=== PATIENT | male | born 1985 | race Caucasian/White ===

== ENCOUNTER 2019-08-30 18:27 | Emergency (ER) | payer MEDICAID, OTHER ==
[2019-08-30 18:32] VITALS: BP 141/92; PULSE 104; RESP 20; TEMP 98.4
[2019-08-30] MEDS ORDERED: DIPH,PERTUS(ACELL)TETVAC-LF 0.5 ML VIAL IM ONE (18:34)
[2019-08-30] MEDS ORDERED: LIDOCAINE 1% INJ 10MG/ML (20 ML MDV) SQ ONE (18:41)
[2019-08-30] MEDS ORDERED: MORPHINE SULFATE 4 MG/ML SYRINGE IM STA (18:49)
[2019-08-30] MEDS ORDERED: ceFAZolin 1,000 MG VIAL (IM USE) IM STA (19:02)
--- NOTE | 2019-08-30 19:06 | ED ---
Wound/Laceration HPI - General Chief Complaint: Wound/Laceration Stated Complaint: finger lac Time Seen by Provider: 08/30/19 18:33 Source: patient Mode of arrival: ambulatory Limitations: no limitations - History of Present Illness Initial Comments: 34-year-old male presenting today for cc of left ring finger laceration/injury x 30 minutes prior to arrival. Patient states he was in the rain using a log splitter when he accidentally caught the tip of his finger in the machine, he states it crushed it. He was wearing a glove. He noted a laceration and came to the ER for repair/further evaluation. Patient states it is painful but he is able to range the digits, denies loss of sensation. Patient denies injury to any other digit,part of the hand. 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 Patient on arrival appears uncomfortable but nontoxic. Tetanus not UTD. - Related Data Previous Rx's Medication Instructions Recorded Cephalexin [Keflex] 500 mg PO Q6HR 7 Days #28 cap 08/30/19 HYDROcodone/APAP 5-325MG [[place] 1 tab PO Q4HR PRN 3 Days #18 tab 08/30/19 5-325] Allergies Allergy/AdvReac Type Severity Reaction Status Date / Time No Known Allergies Allergy Verified 08/30/19 18:32 Review of Systems ROS Statement: Those systems with pertinent positive or pertinent negative responses have been documented in the HPI. ROS Other: All systems not noted in ROS Statement are negative. Past Medical History Past Medical History: No Reported History History of Any Multi-Drug Resistant Organisms: None Reported Past Surgical History: No Surgical Hx Reported Past Psychological History: No Psychological Hx Reported Smoking Status: Current every day smoker Past Alcohol Use History: Occasional Past Drug Use History: None Reported General Exam - General Exam Comments Initial Comments: General: The patient is awake and alert, in no distress, and does not appear acutely ill. Eye: Pupils are equal, round and reactive to light, extra-ocular movements are intact. No nystagmus. There is normal conjunctiva bilaterally. No signs of icterus. Musculoskeletal: Normal ROM at the MCP, DIP and PIP joints of affected digit, painful. Strength appears intact, but refuses to full strength test secondary to pain (once anesthetized appeared to be intact). Sensation intact proximal and distal to the injury site. Radial pulses equal bilaterally 2+. The proximal portion of nail plate avulse, the distal is adhered, roughly 40-50% subungual hematoma. Neurological: A&O x 3. CN II-XII intact, There are no obvious motor or sensory deficits. Coordination appears grossly intact. Speech is normal. Skin: Skin is warm and dry and no rashes, VERY irregular laceration 1.5cm consistent with crush injury of the lateral aspect of the finger pad of distal left ring finger, no bone or tendon exposure--no foreign body identified on exploration. Psychiatric: Cooperative, appropriate mood & affect, normal judgment. Limitations: no limitations Course Vital Signs 08/30/19 18:30 Temperature 98.4 F Pulse Rate 104 H Respiratory 20 Rate Blood Pressure 141/92 O2 Sat by Pulse 99 Oximetry Medical Decision Making - Medical Decision Making 34-year-old male presenting today for chief complaint of crush injury to the left index finger. There is no obvious exposure of a suspected open fracture. Xr revealed a distal tuft fracture of 4th digit, comminuted/diastatic slightly. Patient given 1 G IM. Area Was irrigated, explored, no bone or tendon exposure. Nail proximally avulsed. attempted to tact down the nail bed to protect remaining nail bed. No obvious or appreciated nail bed laceration. Patient laceration was VERY irregular, many mall viable piece of skin, too small for proper approximation but lay flat within the wound. Approximately edges as well as possible. Discussed risk of infection with patient was well as his who is a nurse bedside. She states she is familar with the hand surgeons in town such as [facility] and wants to personally seek patients follow-up I recommended f/u urgently Monday after the holiday with daily monitoring/bandage change for signs of infection. Patient placed on keflex orally q6h. Patient finger bandaged and splinted. There was no obvious tendon injury but did discuss how one may develop if there was a partial injury that progresses to full thus re-iterating the importance of timely f/u . Patient is agreeable to care plan and discharge. Patient dishcarged appearing well. Disposition Clinical Impression: Fracture of distal phalanx of finger of left hand, Open fracture, Finger laceration Disposition: HOME SELF-CARE Condition: Good Instructions (If sedation given, give patient instructions): Finger Laceration (ED) Additional Instructions: Please use medication as discussed. Please follow-up with orthopedic surgery in next week, call Monday for appointment-monitor daily for infection signs as discussed. Take antibiotics 4x daily. Use caution with pain medications as discussed. Please return to emergency room if the symptoms increase or worsen or for any other concerns. Prescriptions: Cephalexin [Keflex] 500 mg PO Q6HR 7 Days #28 cap HYDROcodone/APAP 5-325MG [[place] 5-325] 1 tab PO Q4HR PRN 3 Days #18 tab PRN Reason: Severe Pain Is patient prescribed a controlled substance at d/c from ED?: Yes When asked, does pt state using other controlled substances?: No If prescribed controlled substance>3 days was MAPS reviewed?: Prescribed <3 Days If opioid is for acute pain is fill amount 7 days or less?: Yes If Rx opioid, was Start Talking consent form obtained?: Yes Referrals: Davi Hargrove DO [Primary Care Provider] - 1-2 days Wicho Mosqueda DO [Doctor of Osteopathic Medicine] - 1-2 days Time of Disposition: 20:07
--- NOTE | 2019-08-30 19:11 | XR ---
EXAMINATION TYPE: XR hand complete LT DATE OF EXAM: 08/30/2019 CLINICAL HISTORY: Crush injury to the left fourth distal digit. Subsequent pain. TECHNIQUE: Frontal, lateral and oblique images of the left hand are obtained. COMPARISON: None. FINDINGS: There is comminuted fracture deformity of the distal tuft of the fourth digit of the left h and secondary to crush injury. There is overlying soft tissue swelling present. No additional fractur e seen of the left hand. The comminuted fracture fragments are minimally diastatic. There is a soft t issue laceration. Solitary fracture fragment is displaced on the lateral view at the volar surface of the mid diaphysis of the distal left fourth phalanx. IMPRESSION: Comminuted, minimally diastatic, fracture of the distal tuft of the distal phalanx of the fourth digit of the left hand with solitary displaced fracture fragment as described above.
[2019-08-30] MEDS ORDERED: HYDROcodone/APAP 5-325MG 1 EACH TAB PO STA (20:08)
== END 2019-08-30 20:15 | disposition home or self-care (01) ==
LOC: SUPCPDRO 18:27 → EC 18:27
DX: S62.635B Displaced fracture of distal phalanx of left ring finger, initial encounter for open fracture (principal); Z23 Encounter for immunization; F17.200 Nicotine dependence, unspecified, uncomplicated; W23.0XXA Caught, crushed, jammed, or pinched between moving objects, initial encounter
CPT/HCPCS: 73130; 90715; 99283; 90471; 96372 ×3; J2270; J0690; J2001

== ENCOUNTER → 2022-11-17 | Outpatient (CLI) | payer MEDICAID ==
--- NOTE | 2022-11-17 11:59 | MR ---
EXAMINATION TYPE: MR shoulder RT wo con DATE OF EXAM: 11/17/2022 9:07 AM COMPARISON: NONE HISTORY: Right shoulder pain, hx injury. TECHNIQUE: Multiplanar multispin echo imaging of the right shoulder was performed. FINDINGS: Rotator cuff : Thickening and heterogeneity supraspinatus tendon with small partial undersurface tear noted at the critical zone and distally. No full-thickness tear is seen. The remaining constituents of the rotator cuff are intact. Bursa: No bursal effusion or thickening is seen. Musculature: There is no muscular tear, contusion, or atrophy. Acromioclavicular joint : Mild AC joint arthropathy with small subacromial spur resulting in mild imp ingement. Osseous structures : There are no fractures or regions of abnormal bone marrow signal intensity. Long biceps tendon : The biceps tendon is normally situated within the bicipital groove. No complete or partial biceps tendon tear is present. Glenohumeral Joint fluid : There is no glenohumeral joint effusion. Cartilage and Bone : No focal hyaline cartilage defects are noted. No Hill-Sachs, reverse Hill-Sachs, or bony Bankart lesions are seen. Labrum : There are no SLAP or soft tissue Bankart lesions. No paralabral cysts are seen. OTHER FINDINGS : Small subcoracoid ganglion cyst measuring 1.4 x 1.4 cm. IMPRESSION: 1. Chronic tendinopathy supraspinatus tendon with small partial undersurface tear. Mild impingement.
== END | disposition home or self-care (01) ==
LOC: RADMRIMAIN 08:34
PROVIDERS: ATTEND Orthopaedic Surgery
DX: M25.811 Other specified joint disorders, right shoulder (principal); M75.111 Incomplete rotator cuff tear or rupture of right shoulder, not specified as traumatic